=== PATIENT | male | born 1980 ===

== ENCOUNTER → 2018-07-04 | Outpatient (CLI) | payer OTHER ==
[2018-07-04 16:39] LABS: VANC TR 5.1 mcg/mL (10.0-20.0)
== END | disposition home or self-care (01) ==
LOC: SPEC 16:17
DX: L03.211 Cellulitis of face (principal)
CPT/HCPCS: 36415; 80202

== ENCOUNTER → 2019-06-29 | Outpatient (CLI) | payer OTHER ==
[2019-06-29 14:17] LABS: BASO # 0.1 x10^3/uL (0.0-0.2); BASO % 1 % (0-3); EOS # 0.2 x10^3/uL (0.0-0.7); EOS % 2 % (0-3); HEMATOCRIT 39.2 % (39.0-53.0); HEMOGLOBIN 13.3 g/dL (13.0-17.5); LYMPH % 23 % (24-48); MEAN CORPUSCULAR HEMOGLOBIN 30 pg (25-35); MEAN CORPUSCULAR HGB CONC 34 g/dL (31-37); MEAN CORPUSCULAR VOLUME 88 fL (79-100); MONO # 0.7 x10^3/uL (0.0-1.1); MONO % 7 % (0-9); NEUT % 67 % (31-73); PLATELET COUNT 279 x10^3/uL (140-400); RED BLOOD COUNT 4.46 x10^6/uL (4.30-5.70); RED CELL DISTRIBUTION WIDTH 13.2 % (11.5-14.5)
[2019-06-29 14:25] LABS: ALBUMIN 4.1 g/dL (3.4-5.0); ALBUMIN/GLOBULIN RATIO 1.3 (1.0-1.7); CALCIUM 9.3 mg/dL (8.5-10.1); CREATININE 0.9 mg/dL (0.7-1.3); GFR 93.9; TOTAL BILIRUBIN 0.2 mg/dL (0.2-1.0); TOTAL PROTEIN 7.3 g/dL (6.4-8.2)
[2019-06-29 15:23] LABS: SEDIMENTATION RATE 22 (0-15)
== END | disposition home or self-care (01) ==
LOC: SPEC 14:09
PROVIDERS: ATTEND Nurse Practitioner Family
DX: L08.9 Local infection of the skin and subcutaneous tissue, unspecified (principal); Y04.1XXA Assault by human bite, initial encounter
CPT/HCPCS: 36415; 80053; 84484; 85025; 85651

== ENCOUNTER 2021-01-20 09:55 | Emergency (ER) | payer SELFPAY ==
[~2021-01-20] VITALS: Ht 157.5 cm; Wt 66.7 kg
[2021-01-20 10:09] VITALS: BP 117/80
--- NOTE | 2021-01-20 13:59 | PHYS DOC ---
Past History Past Medical History: Bipolar, Schizophrenia Past Surgical History: No Surgical History Alcohol Use: None General Adult EDM: Chief Complaint: PSYCH EVALUATION HPI: HPI: 40 yo M PMH bipolar do and schizophrenia, presents to the ED brought in by 2 [facility]/2 correctional officers from [facility] (patient was being released from [facility] today after an approximate 20-25 year sentence and was transferred to ed from [facility] via [facility]) with concern for uncontrolled behavior/gloria/psych do. [facility] was planning on transferring patient to [place] for involuntary psych placement but paperwork was done incorrectly and today [facility]. Two [facility] officers know pt well/are present. Patient has chronic, uncontrolled schizophrenia and bipolar do (on wellbutrin, lamictal and zyprexa-per pt) and correctional officers states pt is highly dangerous, known for numerous episodes of battery while being incarcerated for homicide. Biggest concern is if pt is released from their custody, there's a very high likelihood patient will harm another individual/potentially kill, pt is unable to show reasonable decision making skills such that he cannot care for himself. On arrival patient fully alert and oriented but has to be redirected multiple times. Repeatedly requests a razor, cigarettes, new clothing and food. Review of Systems: Review of Systems: ROS: unreliable given pts' mental/psych condition Allergies: Allergies: Allergies Coded Allergies Type Severity Reaction Last Updated Verified No Known Drug Allergies 01/20/21 No Physical Exam: PE: Constitutional: Well developed, well nourished, no acute distress, non-toxic appearance. HENT: Normocephalic, atraumatic, Eyes: EOMI, conjunctiva normal, no discharge. Neck: Normal range of motion, supple, Cardiovascular: S1/2 present, regular rhythm Lungs & Thorax: Speaking in full sentences, bilateral equal chest rise, no tachypnea or increased work of breathing Abdomen: soft, no tenderness, Skin: Warm, dry, no erythema, no rash. [] Back: No tenderness, no CVA tenderness. [] Extremities: No tenderness, no cyanosis, no lower extremity edema Neurologic: Alert and oriented, normal motor function, normal sensory function, no focal deficits noted, steady gait Psychologic: easily distracted, talks to himself/tangential thought processing, very disorganized and inappropriate responses that require multiple re- directions, inappropriate flirting with female staff, labile/unpredictable mood and easily aggressive (officers assist in verbal deescalation), mild paranoia Current Patient Data: Vital Signs: Vital Signs Date Time Temp Pulse Resp B/P (MAP) Pulse Ox O2 Delivery O2 Flow Rate FiO2 01/20/21 10:09 97.9 49 16 117/80 (92) 100 Room Air EKG: EKG: [] Radiology/Procedures: Radiology/Procedures: [] Heart Score: Risk Factors: Risk Factors: DM, Current or recent (<one month) smoker, HTN, HLP, family history of CAD, obesity. Risk Scores: Score 0 - 3: 2.5% MACE over next 6 weeks - Discharge Home Score 4 - 6: 20.3% MACE over next 6 weeks - Admit for Clinical Observation Score 7 - 10: 72.7% MACE over next 6 weeks - Early Invasive Strategies Course & Med Decision Making: Course & Med Decision Making Pertinent Labs and Imaging studies reviewed. (See chart for details) Concern for gloria versus schizophrenia with psychosis such that pt cannot care for self, pt is a danger to others and is so disorganized it appears he does not have any reasonable decision making skills due to his underlying psych disorder. Pt medically cleared for involuntary psych placement. Patient later required sedation due to agitation and unsuccessful verbal desecalation. Pt being considered for [facility] ([facility] is not requesting labs, urine or Covid screening). [employer] ruling will not occur tonight. I had spoke w/ Dr. Patino who had accepted admission and recommended Geodon 10 mg 4 times a day as needed for sedation or agitation. Pt has been on 1:1 precautions in ed. Admission orders had been placed. I was informed by RN that patient was pacing and "ansy," concern for flight risk (elopement) and I requested security to be present and restrain if needed. RN informed me that security did not restrain and pt walked out of the ed. Multiple rns and ed filing or registry clerk made phone calls to [employer] department, police department, addi and ed nurse retail pharmacy manager. I spoke with my ed director. Local law enforcement were informed by ed department that pt was across the street at the [employer] and is a high risk danger to harming others. Police informed ed that [facility] would be [facility]. Mohit Disclaimer: Mohit Disclaimer: This electronic medical record was generated, in whole or in part, using a voice recognition dictation system. Departure Departure: Impression: Primary Impression: Schizophrenia Additional Impressions: Agitation requiring sedation protocol Gloria At high risk of harming others Disposition: 07 AMA/ELOPED/LWBS Admitting Physician: Araseli Patino Condition: GUARDED Referrals: PCP,NO (PCP) BINTA HARDING DO Jan 20, 2021 13:59
[2021-01-20] MEDS ORDERED: ZIPRASIDONE IM 20 MG VIAL. IM PRN ×2 (14:00→17:15)
== END 2021-01-20 18:01 | disposition left against medical advice (07) ==
LOC: EEVIPCON 09:55 → ER 09:55
DX: F20.9 Schizophrenia, unspecified (principal); R45.1 Restlessness and agitation; F30.9 Manic episode, unspecified
CPT/HCPCS: 36415; 96372; 99283; J3486